=== PATIENT | male | born 1985 | race Caucasian/White ===

== ENCOUNTER → 2019-08-16 | Outpatient (CLI) | payer BC ==
--- NOTE | 2019-08-21 05:39 | Polysomnography ---
DATE OF STUDY: 08/16/2019 REFERRING PHYSICIAN: Jim Stanley MD INTERPRETING PHYSICIAN: Jim Stanley MD PROCEDURE: INTERPRETATION of HOME SLEEP TEST (HST) IMPRESSIONS: 1. Severe obstructive sleep apnea with associated oxygen desaturations with AHI of 77.0. 2. Moderate snoring was noted. 3. No limb movement disorder observed. RECOMMENDATIONS: 1. Initiate titration for continuous positive airway pressure therapy (CPAP). 2. ENT evaluation to consider surgical options to correct sleep-disordered breathing. 3. Avoid consumption of alcohol or sedatives before bedtime. 4. Avoid caffeine and exercise within 3-4 hours prior to bedtime. 5. Weight reduction to ideal body weight. 6. Advise the patient that excessive daytime sleepiness could pose a danger to the patient and others while driving or operating heavy machinery, and to use caution until symptoms are treated and improved. 7. Patient to follow up with physician to discuss results of study. Jim Stanley MD JKY/MODL /[id number] MTDD
== END ==
LOC: SLEEP 22:18
PROVIDERS: ATTEND Otolaryngology
DX: G47.33 Obstructive sleep apnea (adult) (pediatric) (principal); R06.83 Snoring
CPT/HCPCS: 95806